=== PATIENT | male | born 2000 | race Caucasian/White ===

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

== ENCOUNTER 2022-03-28 08:41 | Emergency (ER) | payer OTHER, SELFPAY ==
--- NOTE | 2022-03-28 08:48 | ED_ITS ---
HPI - Asthma General Chief Complaint: Asthma Stated Complaint: Asthma attack Time Seen by Provider: 03/28/22 08:45 History of Present Illness HPI Narrative: this is a 21 years old male with history of asthma was lee ann in respiratory distress by the it support consultant, he was given nebs and Solu-Medrol prior to arrival. The patient has history of ICU admission but never been intubated before complaint: asthma attack Onset (ago): hour(s) (4) Severity: moderate Associated symptoms: dry cough Related Data Current Asthma Therapy: inhaled bronchodilator Previous Rx's Medication Instructions Recorded albuterol sulfate 90 mcg/actuation 2 puff inhalation Q6H PRN 03/28/22 aerosol inhaler shortness of breath or wheezing #6.7 grams prednisone 20 mg tablet 60 mg PO DAILY #12 tabs 03/28/22 Allergies Allergy/AdvReac Type Severity Reaction Status Date / Time No Known Allergies Allergy Unverified 05/08/20 17:05 Review of Systems Constitutional: Constitutional: Reports no additional constitutional complaints Cardiovascular: Cardiovascular: Reports no additional cardiovascular complaints and Reports dyspnea Respiratory: Respiratory: Reports dyspnea and Reports wheezing Allergic/Immunologic: Allergic/Immunologic: Reports wheezing [facility] Past Medical History [facility] Narrative: Asthma Social History Social History Advance Directives: No Advance Directives Information Provided: No Physical Exam Vital Signs: Vital Signs: Last Vital Signs Temp 97.8 F 03/28/22 11:56 Pulse 78 03/28/22 11:56 Resp 14 03/28/22 11:56 BP 111/56 L 03/28/22 11:56 Pulse Ox 95 03/28/22 11:56 O2 Del Method 03/28/22 11:56 BMI result Body Mass Index 28.3 Const: General: awake Nutritional Appearance: average body habitus HEENT: Head: Yes normal to inspection General nose exam: Normal external nose present Face and sinus: Yes normal facial exam Mouth: Normal oral and palatal mucosa present Throat: Yes posterior oropharynx normal Chest: Chest palpation & inspection: normal inspection of the chest Resp: Auscultation: wheezes Percussion: percussion normal Cardio: Palpation: normal PMI Rate: regular rate Rhythm: regular rhythm GI: Inspection: Yes normal to inspection Palpation (GI): Soft to palpation, not firm, nontender and no guarding Auscultation: normal bowel sounds Course Reevaluation(s) Reevaluation #1: He is completely asymptomatic at this time ,Lung clear wants to go home. Time: 13:23 Critical Care Time Critical Care Time Critical Care Time: Yes Total Critical Care Time: 45 Attestation: multiple nebs (Albuterol 7.5 /IV magnesium) Discharge Plan Discharge Clinical Impression: Asthma with acute exacerbation Patient Disposition: Home, Self-Care Instructions: Asthma (ED) Additional Instructions: follow-up with primary care physician, return to the emergency room if you worse within the prescription for prednisone albuterol to your pharmacy Prescriptions: New albuterol sulfate 90 mcg/actuation HFA aerosol inhaler 2 puff inhalation Q6H PRN (Reason: shortness of breath or wheezing) Qty: 6.7 0RF prednisone 20 mg tablet 60 mg PO DAILY Qty: 12 0RF Interventions: ED Discharge Assessment Last Done: 03/28/22 13:41 Discharge Date/Time: 03/28/22 13:41
[2022-03-28 09:53] VITALS: BP 103/52; PULSE 73; RESP 18; TEMP 36.8; O2SAT 96; BMI 28.3
[2022-03-28] MEDS: Magnesium Sulfate/H2O 2 GM/50 ML PIGGYBACK IV (09:54)
--- NOTE | 2022-03-28 09:55 | PC.NURSE ---
aox3 speaking in full clear sentences and independent steady gait. breathing treatment compleated and iv infusing per md order. pt denies any complaints and hr remains in the 70s.
[2022-03-28 11:56] VITALS: BP 111/56; PULSE 78; RESP 14; TEMP 36.6; O2SAT 95
== END 2022-03-28 13:41 | disposition home or self-care (01) ==
PROVIDERS: Emergency Provider Emergency Medicine
DX: J45.901 Unspecified asthma with (acute) exacerbation (principal)
CPT/HCPCS: 94640; 96374; 99284; J3475